=== PATIENT | female | born 1945 | race Caucasian/White ===

== ENCOUNTER 2024-02-20 23:53 | Observation (INO) | payer MEDICARE, BC, SELFPAY ==
[2024-02-20] VITALS (8 sets, daily range): BP systolic 126–174; BP diastolic 48–63; BMI 21.5
[2024-02-20 17:29] LABS: % Basophils 0.7 % (0-2); % Eosinophils 1.6 % (0-6); % Immature Granulocytes 0.3 % (0-0.5); % Lymphocytes 34.6 % (20.5-51.1); % Monocytes 7.9 % (1.7-9.3); % Neutrophils 54.9 % (42.2-75.2); Absolute Basophils 0.1 10^3/uL (0-0.2); Absolute Eosinophils 0.2 10^3/uL (0-0.7); Absolute Lymphocytes 3.8 10^3/uL (1.2-3.4); Absolute Monocytes 0.9 10^3/uL (0.1-0.6); Hematocrit 40.6 % (37.0-47.0); Mean Corp Hgb Conc. 34.5 g/dL (33.0-37.0); Mean Corpuscular Hgb 30.8 pg (27.0-31.0); Mean Corpuscular Volume 89.2 fL (81.0-99.0); Mean Platelet Volume 10.1 fL (7.4-10.4); Nucleated Red Blood Cells % 0 %; Platelet Count 226 10^3/uL (130-400); Red Blood Cell Count 4.55 10^6/uL (4.20-5.40); Red Cell Dist. Width 12.2 % (11.5-14.5); White Blood Cell Count 10.9 10^3/uL (4.8-10.8)
[2024-02-20 17:43] LABS: ALT (SGPT) 38 U/L (0-35); AST (SGOT) 33 U/L (14-36); Albumin 4.8 g/dl (3.5-5.0); Alkaline Phosphatase 58 U/L (38-126); Blood Urea Nitrogen 21 mg/dl (7-17); Calcium 10.4 mg/dl (8.4-10.2); Carbon Dioxide 29 mmol/L (22-30); Chloride 105 mmol/L (98-107); Glucose 131 mg/dl (70-99); Potassium 5.8 mmol/L (3.5-5.1); Sodium 143 mmol/L (135-145); Total Bilirubin 0.6 mg/dl (0.2-1.3); Total Protein 7.3 g/dl (6.3-8.2); eGFR > 60.00
[2024-02-20 17:56] LABS: Troponin I < 0.012 ng/ml
[2024-02-20] MEDS: ASPIRIN 325 MG PO (22:49)
[2024-02-20] MEDS: NITROSTAT (SUBLINGUAL) 0.4 MG SL (22:49)
[2024-02-20 23:26] LABS: NT-proBNP 149 pg/ml; Troponin I < 0.012 ng/ml
--- NOTE | 2024-02-20 23:45 | ED.GENMED ---
History of Present Illness
General
Chief Complaint: Chest Pain
Source: patient
Exam Limitations: none
Time Seen by Provider: 02/20/24 21:26
History of Present Illness
History of Present Illness:
78-year-old female with history of hypertension presents with progressively worsening dyspnea on exertion fatigue and chest discomfort. She saw her family doctor earlier this week because of the symptoms and had EKG changes. Patient was sent for
stress test which she had yesterday. There was ischemic findings noted on the stress test. Today she notes ongoing chest discomfort which she describes as an aching squeezing discomfort in the center of her chest with overall unwell sensation.
She denies nausea or diaphoresis. No leg swelling or calf pain. No pleuritic component to the discomfort. She was due to see cardiology as an outpatient later this week however symptoms worsened so she came here.
Phy Exam
Physical Exam
Physical Exam:
General: Uncomfortable appearing female no acute respiratory distress
HEENT: Normocephalic atraumatic
Heart: Regular rate and rhythm no murmur
Lungs: Clear no wheeze
Abdomen is soft nontender numbness
Extremities: No cyanosis
Scores
Heart Score for Chest Pain Patients
STEMI patient?: No
History: Moderately Suspicious
ECG: Nonspecific Repolarization
Age: >/= 65 years
Risk Factors: 1 or 2 Risk Factors
Troponin: </= Normal Limit
Heart Score for Chest Pain Patients: 5
Heart Score Risk: 20.3% MACE over next 6 weeks
Course
Orders/Labs/Results
Orders:
Orders
02/20/24 17:01
Electrocardiogram (*1) Urgent
Reason for Study: Chest Pain
EKG- Treatment ONCE
02/20/24 17:21
Complete Blood Count/With Diff Urgent
Comprehensive Metabolic Panel Urgent
Troponin I Urgent
02/20/24 21:54
Aspirin 325 mg PO NOW STA
02/20/24 22:06
Nitroglycerin Sublingual [Nitrostat (Sublingual)] 0.4 mg SL NOW STA
02/20/24 22:09
CR Chest - 2 Views Urgent
Comment:
Reason For Exam: chest pain, sob
02/20/24 22:55
NT-proBNP Urgent
Troponin I Urgent
Abnormal Lab Results
02/20/24
17:21
WBC 10.9 H 10^3/uL
(4.8-10.8)
Absolute Lymphs (auto) 3.8 H 10^3/uL
(1.2-3.4)
Absolute Monos (auto) 0.9 H 10^3/uL
(0.1-0.6)
Potassium 5.8 H mmol/L
(3.5-5.1)
BUN 21 H mg/dl
(7-17)
Glucose 131 H mg/dl
(70-99)
Calcium 10.4 H mg/dl
(8.4-10.2)
ALT 38 H U/L
(0-35)
02/20/24 17:21
02/20/24 17:21
Vital Signs
Initial and Last Documented VS:
Initial Vital Signs
Temp
98.4 F
02/20/24 17:06
Last Documented Vital Signs
Temp Pulse Resp BP Pulse Ox
98.4 F 55 10 127/54 91
02/20/24 17:06 02/20/24 23:30 02/20/24 23:30 02/20/24 23:30 02/20/24 23:00
MDM/Problems Addressed
Differential Diagnosis Includes:
Chest pain. Somewhat concerning story of worsening dyspnea on exertion. This was relieved with rest however today her discomfort is persistent even with rest. I reviewed stress test results from yesterday which demonstrated ischemic changes. I
was able to visualize EKG on the doctor's office earlier this week. Today she has a flipped T wave in V2 which was not present before. Initial troponin was undetectable. Spoke with cardiology regarding symptoms. Patient does have some relief
here today with sublingual nitroglycerin. Given persistent symptoms ongoing chest discomfort with recent abnormal findings on stress test and EKG will keep in hospital for further evaluation.
*Critical Care Note
Total Time (30-74mins, 75-104mins- exclusive of procedures): Not Applicable
ED Attending Note
-
Portions of this chart may have been created with voice recognition software.� Occasional wrong word or��sound alike� substitutions may have occurred due to the inherent limitations of voice recognition software.
Discharge Plan
Departure
Patient Disposition: Admit
Date of Disposition: 02/20/24
Time of Disposition: 23:49
Admit to: Telemetry
Presentation/result/management discussed w/ accepting MD/DO: Hospitalist
Discharge Problem:
Chest pain
Prescriptions:
No Action
atorvastatin 20 mg Tablet
20 mg PO HS
ibuprofen [Advil] 200 mg Tablet
400 mg PO Q8H PRN (Reason: mild pain/fever)
metoprolol succinate 25 mg Tablet Extended Release 24 Hr
25 mg PO HS
Referrals:
Mary Naylor MD [Family Provider] -
Interventions
Interventions:
*Risk Screen - Suicide Last Done: 02/20/24 17:06
*General Assessment Last Done: 02/20/24 19:15
*Neglect/Abuse Screening Last Done: 02/20/24 19:15
*ED COVID-19 Vaccine History Last Done: 02/20/24 19:28
ED- Cardiac Assessment Last Done: 02/20/24 19:28
Discharge Date and Time
Print Language: HUNGARIAN
--- NOTE | 2024-02-20 23:55 | HPS.HSE ---
Family Physician
-
Family Physician: Mary Naylor
Chief Complaint
-
Chest Pain
History of Present Illness
Patient is an 78y F with PMH significant for hypertension who presents to ED complaining of chest pain and fatigue. Patient states that she has noted exercise intolerance and fatigue for about 2 months now. She was seen by here PCP recently and
also noted intermittent chest tightness sensation. She was sent for tress test (at [facility]) which was reportedly abnormal. Patient was referred to [facility] Cardiology and has an appointment there Thursday. Today, patient felt that her chest tightness was
more severe. She had discomfort in the upper back and the R shoulder as well.
Patient presented to the ED for further evaluation.
She received SL NTG here in the ED and states that her symptoms are improved.
Medical History
Past Medical History
Past Medical History: Reports Other
Additional Past Medical History:
Hypertension
Past Surgical History: Reports Other
Additional Past Surgical History:
Cholecystectomy
Bilateral Hand Surgeries
T&A
Cataracts
Social History
Tobacco: Non-smoker
Alcohol: Daily (1 1/2 glasses daily.)
Drug: None
Family History
Family History: Other (Father: AK @ age 50, CVA Mother: CVA Brother: CAD)
Allergies / Home Medications
Allergies reflects when Allergies were last updated in [employer].
Home Medications with original date entered in [employer]
Allergy/Medication List:
Allergies
Allergy/AdvReac Type Severity Reaction Status Date / Time
adhesive tape Allergy Rash Verified 02/20/24 17:06
Home Medications
atorvastatin 20 mg tablet 20 mg PO HS 02/20/24
ibuprofen 200 mg tablet (Advil) 400 mg PO Q8H PRN mild pain/fever 02/20/24
metoprolol succinate 25 mg tablet,extended release 24 hr 25 mg PO HS 02/20/24
Review of Systems
-
History Source: Patient
A 12 point ROS was completed and negative except as noted: Yes
Constitutional: Reports Fatigue; Denies Fever or Chills
EENT: Denies Sore Throat
Respiratory: Reports Trouble Breathing; Denies Cough
Cardiac: Reports Chest Pain; Denies Diaphoresis or Palpitations
Abdomen/GI: Denies Abdominal Pain, Nausea, Vomiting or Diarrhea
: Denies Dysuria or Frequency
Musculoskeletal: Denies Edema
Neurological: Denies Dizzy or Headache
Psych: Denies Depression or Anxiety
Physical Exam
Vital Signs
Vital Signs
Temp Pulse Resp BP Pulse Ox
98.4 F 55 10 127/54 91
02/20/24 17:06 02/20/24 23:30 02/20/24 23:30 02/20/24 23:30 02/20/24 23:00
Physical Exam
General: Other (78y F in no acute distress.)
HEENT: Moist mucous membranes
Respiratory: Clear; No Wheezes, Rales or Rhonchi
Cardiac: S1/S2 and Regular Rhythm; No Murmur
GI: Soft, Non Tender, Non Distended and Normal Bowel Sounds
Musculoskeletal: No Clubbing, No Cyanosis and No Edema
Neuro: AO x 3
Laboratory Results
-
02/20/24 17:21
02/20/24 17:21
Laboratory Results
Total Bilirubin 0.6 mg/dl (0.2-1.3) 02/20/24 17:21
AST 33 U/L (14-36) 02/20/24 17:21
ALT 38 U/L (0-35) H 02/20/24 17:21
Alkaline Phosphatase 58 U/L (38-126) 02/20/24 17:21
Troponin I < 0.012 ng/ml 02/20/24 22:55
Impression/Plan
-
A/P: Patient is an 78y F with PMH significant for hypertension who presents to ED complaining of chest pain and fatigue.
Chest Pain
- Observe overnight for further evaluation and treatment.
- Reportedly abnormal stress test done at [facility] recently (send for records).
- Trop here is undetectable.
- EKG with non-specific ST and T wave changes.
- Monitor for any new / recurrent symptoms.
- Continue metoprolol/ statin. Add daily ASA.
- Cardiology evaluation for additional recommendations.
Benign Hypertension
- Stable. Continue metoprolol with holding parameters.
DVT Prophylaxis: SCDs
Code Status: Full
[2024-02-21] VITALS (8 sets, daily range): BP systolic 105–161; BP diastolic 47–68; BMI 22.3
[2024-02-21] MEDS: NSS 1000 IV (01:10)
[2024-02-21 02:18] LABS: Troponin I < 0.012 ng/ml
--- NOTE | 2024-02-21 03:25 | PTCARENOTE ---
Received pt as admission from ED into room 2245. Pt AAOx3 and ambulated from stretcher to bed independently without difficulty, no complaints of CP. Tele connected, Sinus juan with HR 50s-60s. VSS. Pt oriented to room and admission assessment
completed. Plan of care discussed and pt. verbalizes understanding. Can make needs known. Call jaffe within reach.
[2024-02-21 06:51] LABS: Blood Urea Nitrogen 17 mg/dl (7-17); Carbon Dioxide 27 mmol/L (22-30); Chloride 107 mmol/L (98-107); Estimated Creatinine Clearance 62 ml/min; Glucose 94 mg/dl (70-99); HDL Cholesterol 77 mg/dl; LDL Cholesterol, Calculated 66 mg/dl; Sodium 142 mmol/L (135-145); Total Cholesterol 154 mg/dl (50-199); Triglyceride 58 mg/dl (10-149); Very Low Density Lipoprotein 11 mg/dl (0-30); eGFR > 60.00
[2024-02-21 06:52] LABS: Troponin I < 0.012 ng/ml
--- NOTE | 2024-02-21 07:00 | PTCARENOTE ---
report received at change of shift from previous RN. Pt AAOX3. pt reports no chest pain at this time- some soreness to right shoulder. denies shortness of breath. SB on telemetry with 1st degree block heart rate 50-60s. pulses palpable, no edema.
99% on room air. lung sounds clear. active bowel sounds. voiding in bathroom without difficulty. ambulating independently without difficulty. pt updated on plan of care for today. see worklist for full nursing assessment and interventions.
[2024-02-21 07:41] LABS: Hematocrit 34.9 % (37.0-47.0); Hemoglobin 12.4 g/dL (12.0-16.0); Mean Corp Hgb Conc. 35.5 g/dL (33.0-37.0); Mean Corpuscular Hgb 32.5 pg (27.0-31.0); Mean Corpuscular Volume 91.6 fL (81.0-99.0); Mean Platelet Volume 10.3 fL (7.4-10.4); Platelet Count 167 10^3/uL (130-400); Red Blood Cell Count 3.81 10^6/uL (4.20-5.40); Red Cell Dist. Width 12.1 % (11.5-14.5); White Blood Cell Count 7.4 10^3/uL (4.8-10.8)
--- NOTE | 2024-02-21 07:41 | W.PN.HOSP.TC ---
Today's Communication/Plan
-
F/U further cardiology recommendations
Assessment / Plan
Assessment / Plan
Patient is an 78y F with PMH significant for hypertension who presents to ED complaining of chest pain and fatigue, in setting of recent abnormal stress test as outpatient.
Chest Pain
Unstable Angina
- admitted to observation
- Reportedly abnormal stress test done at [facility] recently (send for records).
- Trop here is undetectable.
- EKG with non-specific ST and T wave changes.
- Continue metoprolol/ statin. Add daily ASA.
- Nitro PRN
- Cardiology evaluation for additional recommendations.
Benign Hypertension
- Stable. Continue metoprolol with holding parameters.
DVT Prophylaxis: SCDs
Code Status: Full
Anticipated Discharge: 24 - 48 hours
Subjective/Interval History
-
Date of Service: February 21, 2024
the knot of chest discomfort is improved
has some upper back pain
states chest discomfort has been on and off but mostly persistent over past 2 months; maybe worse with exertion
Objective Data
-
Labs:
Laboratory Results
02/21/24
06:18
WBC 7.4
Hgb 12.4
Hct 34.9 L
Plt Count 167 D
Sodium 142
Potassium 4.0 D
Chloride 107
Carbon Dioxide 27
BUN 17
Creatinine 0.6
Glucose 94
Calcium 9.0
Vital Signs:
Vital Signs
Temp Pulse Resp BP Pulse Ox
98.5 F 68 20 139/63 99
02/21/24 07:23 02/21/24 02:00 02/21/24 07:23 02/21/24 01:33 02/21/24 07:23
Review of Systems
-
History Source: Patient
All other systems: Reviewed and negative
Physical Exam
-
General: No Apparent Distress
HEENT: PERRLA
Respiratory: Clear to Auscultation; Negative Wheezes
Cardiac: Regular Rhythm and S1/S2
GI: Soft and Nontender
Musculoskeletal: No Edema
Skin: Warm and Dry; Negative Rash
Neuro: AO x 3
Psych: Calm
Data Reviewed
-
Diagnostic Radiology: Report Reviewed by me
Labs: Labs Reviewed by me
[2024-02-21] MEDS: LOW STRENGTH ASPIRIN 81 MG PO (07:58)
[2024-02-21] MEDS: NSS IV (14:37)
--- NOTE | 2024-02-21 15:30 | CON.CAR ---
Consultation
Consultation Request
Date/Time Consultation Requested: 02/21/24
Date/Time Consultation Performed: 02/21/24
Requesting Provider: Maritza
Performing Provider: Dipak
Reason for Consultation: CP, SOB, fatigue
Medical History
-
Chief Complaint: CP, SOB, fatigue
History of Present Illness:
78-year-old woman past medical history of hypertension, hyperlipidemia who presents for evaluation of ongoing fatigue, chest discomfort and shortness of breath which has been present over the course of the past several months. Patient tells me that
her main complaint is fatigue and reported to this to her primary care physician who recommended exercise treadmill stress testing.
ETT was performed through the [employer] system earlier this week and patient was found to have up to [address] depressions in inferolateral leads at 6 and half minutes, 8 minutes in patient reportedly experience shortness of breath
but no chest discomfort based on stress report and patient's account.
Patient tells me that yesterday her chest discomfort worsened although it has been present present throughout the day yesterday and has been intermittently present over the course of a month or more. This led her to present to [place] emergency
department. Describes the discomfort as a knot in her chest. Does not seem to be exertional by her account. Tells me she was 'scared' given abnormal stress test.
ECG on presentation here with nonspecific ST-T wave changes
Troponin has been undetectable x 4 despite chest pain throughout the day yesterday.
proBNP was not elevated at 149
PMHx:
HTN
HLD
Cholecystectomy
Bilateral Hand Surgeries
T&A
Cataracts
Past Medical History
Past Medical History: Other (as above)
Past Surgical History: Other (as above)
Social History
Tobacco: Non-Smoker
Alcohol: Daily
Family History
Family History: CAD (brother)
Allergies / Home Medications
Allergy/AdvReac Type Severity Reaction Status Date / Time
adhesive tape Allergy Rash Verified 02/20/24 17:06
�Medication �Instructions �Recorded �Confirmed �Type
atorvastatin 20 mg tablet 20 mg PO HS High Cholesterol 02/20/24 02/20/24 History
ibuprofen 200 mg tablet (Advil) 400 mg PO Q8H PRN mild pain/fever 02/20/24 02/20/24 History
metoprolol succinate 25 mg 25 mg PO HS Blood Pressure 02/20/24 02/20/24 History
tablet,extended release 24 hr
Review of Systems
-
History Source: Patient
All other systems: Negative unless noted
Physical Exam
Vital Signs
Temp Pulse Resp BP Pulse Ox
98.9 F 74 20 105/53 98
02/21/24 11:38 02/21/24 14:00 02/21/24 11:38 02/21/24 11:40 02/21/24 11:38
Lab Results
02/21/24 06:18
02/21/24 06:18
Troponin I Cancelled 02/21/24 12:59
Irc-W-Iyalqvraeil Pept 149 pg/ml 02/20/24 22:55
Physical Exam
General: Well Developed
HEENT: Normocephalic
Respiratory: Clear and Non Labored Respirations
Cardiac: S1/S2 and Regular Rhythm
Breast: Deferred by me
GI: Soft
Musculoskeletal: No Edema
Skin: Warm and Dry
Neuro: AO x 3
Psych: Calm
Impression / Plan
-
Culinary Instructor: Scheduled to see Velia
Assessment:
Chest pain
Abnormal exercise stress test
HTN
HLD
FHx CAD
Plan:
-Main complaint is fatigue but is also been experiencing dyspnea as well as chest discomfort
-Chest discomfort sounds atypical as it is not clearly exertional in nature
-Underwent ETT through the [facility] system with [address] depressions however no chest pain on the treadmill
-After experiencing the chest discomfort throughout the day on 02/19 she presented to [place] emergency department and troponin has been undetectable x 4
-ECG with non-specific ST/T wave changes
-Agree with medical management: aspirin, atorvastatin and beta-joni
-Recommend ischemic evaluation with an imaging stress test, plan for Lexiscan nuclear stress test on 02/22/2024
-For completeness, we will also check transthoracic echocardiogram tomorrow
-The above testing will dictate further workup and management
Discussed with hospitalist
Data Reviewed
-
EKG: Tracing Personally Visualized and interpreted
Radiology: Image Personally Visualized and interpreted
Medical Tests (Nuc Med, Echo etc): Report Reviewed by me
Labs: Labs Reviewed by me
Old Records: Reviewed
[2024-02-21] MEDS: LIPITOR 20 MG PO (20:38)
[2024-02-21] MEDS: TOPROL XL 25 MG PO (20:39)
--- NOTE | 2024-02-21 21:13 | PTCARENOTE ---
Assumed pt care. Pt resting in bed at time of assessment. AAO x 4, reports 3-4/10 shoulder discomfort radiating to back & RIVAS - pt states pain has been constant since time of admission without any exacerbating or alleviating interventions. PRN
Tylenol offered, pt refused at time. No other issues noted. Pt on RA, POX 98%, posterior BS clear/equal, denies SOB or KUMAR. Pt in NSR with 1st degree AVB on monitor, heart tones normal, distal pulses palpable, no edema noted. Pt up ad sofia,
tolerating activity. BS audible, good appetite, NPO at midnight. Voiding without issue. Skin intact PIV present & patent. See MAR>
[2024-02-22 04:33] VITALS: BP 129/53
--- NOTE | 2024-02-22 04:38 | PTCARENOTE ---
VS obtained. Pt reports up ad sofia throughout night to use bathroom to void. Pt NPO. No other changes.
[2024-02-22 07:36] VITALS: BP 130/55
[2024-02-22] MEDS: LOW STRENGTH ASPIRIN 81 MG PO (07:44)
[2024-02-22 08:25] LABS: Glycohemoglobin (HgbA1c) 5.3 % (4.0-5.6)
--- NOTE | 2024-02-22 08:43 | W.PN.CARDCBS ---
Addendum entered and electronically signed by Obdulia Rodriguez DO 02/22/24 15:56:
I saw and examined the patient.
The Candy Attendant's note was reviewed and I agree with the note.
Comment: Patient seen and examined with her at bedside Following stress test. She continues to have a constant discomfort in her chest which does not get worse with activity. No shortness of breath. No palpitations.
General: No acute distress, AAOX3
Neck: Negative JVD
Heart: Regular, positive S1/S2,No murmur
Lungs: CTA b/l, negative wheezes/rales/rhonchi
Abd: Positive BS, NT/ND, neg rebound/rigidity/guarding
Ext: Negative cyanosis/clubbing/edema
Neuro: nonfocal
Cardiac studies done today:
-2D echocardiogram with normal biventricular size and systolic function and mild AI, mild to moderate TR. Estimated pulmonary artery pressure 31 mmHg. No pericardial effusion
-Lexiscan nuclear stress test with normal myocardial perfusion without evidence of scan ischemia or scar. LV ejection fraction 67%
Plan:
Near constant, mild chest discomfort
-Atypical symptoms with undetectable troponin
-2D echocardiogram with normal biventricular size and systolic function, mild to moderate TR with no evidence of pulmonary hypertension. No pericardial effusion
-Lexiscan nuclear stress test read after our visit with normal myocardial perfusion without evidence of scan ischemia or scar, ejection fraction 67%
-Consider noncardiac causes
-Continue risk factor reduction
-Keep follow-up as scheduled with Dr. Gunn
Original Note:
Today's Communication / Plan
-
Lexiscan ST and echo today
Further decision making pending results of stress and echo
Continue Toprol, aspirin and statin
Impression / Plan
-
Biofuels Research Scientist: Scheduled to see Velia
Assessment:
Presented with ongoing fatigue for several months, new dyspnea and intermittent chest discomfort/pressure
Chest pain
Abnormal exercise stress test as outpt
HTN
HLD
FHx CAD
Echocardiogram 02/22/2024: EF 65 to 70%. Mild AI. Moderate TR, PAP 31 mmHg
Lexiscan nuclear stress test 02/22/2024: Pending
Treadmill stress test 02/17/24: 6:30, [address] depressions in inferolateral leads which persisted into recovery approximately 9 minutes.
Plan:
-Presented 02/20/2024 with ongoing fatigue for several months, new dyspnea and intermittent chest discomfort/pressure
-Underwent ETT through the [facility] system with [address] depressions however no chest pain on the treadmill
-After experiencing the chest discomfort throughout the day on 02/19 she presented to [place] emergency department and troponin has been undetectable x 4
-ECG with non-specific ST/T wave changes
-Chest discomfort sounds atypical as it is not clearly exertional in nature
-Agree with medical management: aspirin, atorvastatin and beta-joni
-Recommend ischemic evaluation with an imaging stress test, plan for Lexiscan nuclear stress test on 02/22/2024 results are pending
-Transthoracic echocardiogram as noted above preserved ejection fraction with mild AI and moderate TR. Normal regional wall motion.
-Lipids 02/21/2024 TC 154, HDL 77, LDL 66, triglycerides 58. Continue atorvastatin
-The above testing will dictate further workup and management
Discussed with hospitalist, nursing
HPI 02/21/2024:
78-year-old woman past medical history of hypertension, hyperlipidemia who presents for evaluation of ongoing fatigue, chest discomfort and shortness of breath which has been present over the course of the past several months. Patient tells me that
her main complaint is fatigue and reported to this to her primary care physician who recommended exercise treadmill stress testing.
ETT was performed through the [employer] system earlier this week and patient was found to have up to [address] depressions in inferolateral leads at 6 and half minutes, 8 minutes in patient reportedly experience shortness of breath
but no chest discomfort based on stress report and patient's account.
Patient tells me that yesterday her chest discomfort worsened although it has been present throughout the day yesterday and has been intermittently present over the course of a month or more. This led her to present to [place] emergency
department. Describes the discomfort as a knot in her chest. Does not seem to be exertional by her account. Tells me she was 'scared' given abnormal stress test.
ECG on presentation here with nonspecific ST-T wave changes
Troponin has been undetectable x 4 despite chest pain throughout the day yesterday.
proBNP was not elevated at 149
Progress Note - Biofuels Research Scientist
Subjective
Date of Service: February 22, 2024
Patient seen and examined. Patient sitting on edge of bed. Reports she has mild headache following Lexiscan stress test. Still notes occasional intermittent chest tightness generally brief and self-limiting.
Objective
Labs:
02/21/24 06:18
02/21/24 06:18
Labs
Hgb 12.4 g/dL (12.0-16.0) 02/21/24 06:18
Hct 34.9 % (37.0-47.0) L 02/21/24 06:18
Plt Count 167 10^3/uL (130-400) D 02/21/24 06:18
Sodium 142 mmol/L (135-145) 02/21/24 06:18
Potassium 4.0 mmol/L (3.5-5.1) D 02/21/24 06:18
BUN 17 mg/dl (7-17) 02/21/24 06:18
Creatinine 0.6 mg/dL (0.6-1.0) 02/21/24 06:18
Glucose 94 mg/dl (70-99) 02/21/24 06:18
Troponins
02/20/24 02/20/24 02/21/24
17:21 22:55 01:38
Troponin I < 0.012 < 0.012 < 0.012
02/21/24 02/21/24
06:18 12:59
Troponin I < 0.012 Cancelled
Vital Signs and I&O:
Vital Signs
Temp Pulse Resp BP Pulse Ox
97.8 F 55 16 130/55 100
02/22/24 04:36 02/22/24 07:36 02/22/24 07:43 02/22/24 07:36 02/22/24 07:43
Vital Signs
Temp Pulse Resp BP Pulse Ox
97.8 F 55 16 130/55 100
02/22/24 04:36 02/22/24 07:36 02/22/24 07:43 02/22/24 07:36 02/22/24 07:43
Intake & Output
02/20/24 02/21/24 02/22/24 02/23/24
06:59 06:59 06:59 06:59
Intake Total 1080 / 1080
Balance 1080 / 1080
Physical Exam
Physical Exam
GEN: No distress, awake, Ox3
HEENT: supple, anicteric, mmm
LUNGS: CTA, no wheezes/rales
CV: Reg, S1/S2, 1/6 syst LSB murmur, no rub or gallop
ABD: soft, BS+, NT/ND
EXT: No edema, no clubbing or sinus
NEURO: Gross non-focal
SKIN: No rash, warm, dry,
--- NOTE | 2024-02-22 10:10 | PTCARENOTE ---
pt sent for echo at ~8am, stress test to follow.
assumed care of pt from previous shift RN, sinus rhythm on tele, VSS, lungs diminished bilaterally, pox 100% on RA. +bs, NPO maintained, voids spontaneously, PIV flushes easily, plan of care reviewed w the pt and questions encouraged.
[2024-02-22] MEDS: LEXISCAN 0.4 MG IV (10:50)
[2024-02-22] MEDS: FLUSH (NSS) 1 FLUSH IV (10:51)
[2024-02-22 13:27] VITALS: BP 153/54
--- NOTE | 2024-02-22 13:29 | PTCARENOTE ---
pt returned from echo/stress test. VSS, clear liquid tray ordered.
--- NOTE | 2024-02-22 13:32 | CM ---
Chart reviewed. Patient out of the room at a stress test, at bedside. Patient is independent of ADLS, lives with her in a 1 [address], 2 JENN, 0 DME. Plan is for the patient to return home. CM to follow
[2024-02-22 15:08] VITALS: BP 125/52
--- NOTE | 2024-02-22 16:37 | W.PN.HOSP.TC ---
Today's Communication/Plan
-
dc to home
Assessment / Plan
Assessment / Plan
Patient is an 78y F with PMH significant for hypertension who presents to ED complaining of chest pain and fatigue, in setting of recent abnormal stress test as outpatient.
Chest Pain
Unstable Angina
- Stress normal, Echo normal
- continue ASA/statin/BB
- add a PPI in case of GI related reflux/heartburn etc. OP GI referral.
- OP Cards f/u.
Benign Hypertension
- Stable. Continue metoprolol with holding parameters.
DVT Prophylaxis: SCDs
Code Status: Full
More than 30 minutes spent in discharge including
Final examination of the patient
Summarizing hospital stay
Instructions for continuing care to all relevant caregivers
Preparation of discharge records, prescriptions, and referral forms
Total time spent (in minutes): 41
Anticipated Discharge: Today
Subjective/Interval History
-
Date of Service: February 22, 2024
no complaints
echo and stress were normal
Objective Data
-
Vital Signs:
Vital Signs
Temp Pulse Resp BP Pulse Ox
97.8 F 59 20 130/55 98
02/22/24 15:06 02/22/24 13:00 02/22/24 15:06 02/22/24 07:36 02/22/24 15:06
I&O
02/21/24 02/22/24 02/23/24
06:59 06:59 06:59
Intake Total 1080 / 1080
Balance 1080 / 1080
Physical Exam
-
General: No Apparent Distress
HEENT: Normocephalic and Atraumatic
Respiratory: Negative Wheezes
Cardiac: Regular Rhythm and S1/S2
GI: Soft and Nontender
Musculoskeletal: No Edema
Neuro: AO x 3
Hematologic / Lymphatic: No Lymphadenopathy
Data Reviewed
-
Total Time Spent with Patient (in minutes): 41
Labs: Labs Reviewed by me
--- NOTE | 2024-02-22 16:41 | W.DS.TRANS ---
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
-
Discharge Instructions:
Discharge Diagnosis/Procedures chest pain
Diet Low Cholesterol
Activity As tolerated
Instructions:
Stand-Alone Forms:
Changes to Home Medications: No
Discharge Medications:
DC Medications w/original date entered in [employer]
atorvastatin 20 mg tablet 20 mg PO HS High Cholesterol 02/20/24
metoprolol succinate 25 mg tablet,extended release 24 hr 25 mg PO HS Blood Pressure 02/20/24
aspirin 81 mg chewable tablet 81 mg PO DAILY #100 tabs 02/22/24
pantoprazole 40 mg tablet,delayed release 40 mg PO DAILY #30 tabs 02/22/24
Home Medication Changes
Pending Results: No
Total time spent discharging patient (in min): 42
--- NOTE | 2024-02-22 17:46 | PTCARENOTE ---
IV line and tele monitor discontinued. Discharge instructions, follow up appointments and medication list reviewed w the pt and questions encouraged.
== END 2024-02-22 17:56 | disposition home or self-care (01) ==
LOC: IVU 23:53
PROVIDERS: Emergency Medicine; Physician Assistant; ADMITTING PHYSICIAN Hospitalist; ATTENDING PHYSICIAN Internal Medicine; CONSULT PHYSICIAN Internal Medicine Cardiovascular Disease; EMERGENCY PHYSICIAN Student in an Organized Health Care Education/Training Program; FAMILY PHYSICIAN Internal Medicine
DX: R07.89 Other chest pain (principal); R94.31 Abnormal electrocardiogram [ECG] [EKG]; I10 Essential (primary) hypertension; R06.09 Other forms of dyspnea; R53.83 Other fatigue; E78.5 Hyperlipidemia, unspecified; R00.1 Bradycardia, unspecified; R51.9 Headache, unspecified; I08.2 Rheumatic disorders of both aortic and tricuspid valves; R06.02 Shortness of breath; Z90.49 Acquired absence of other specified parts of digestive tract; Z82.3 Family history of stroke; Z82.49 Family history of ischemic heart disease and other diseases of the circulatory system; Z91.048 Other nonmedicinal substance allergy status; Z79.82 Long term (current) use of aspirin
CPT/HCPCS: 71046; 80048; 80053; 80061; 83036; 83880; 84484; 85025; 85027; 93005; 93017; 93306; 99285; G0378; J2785

== ENCOUNTER 2024-03-07 06:16 | Day surgery (SDC) | payer MEDICARE, BC, SELFPAY ==
[2024-03-07] VITALS (14 sets, daily range): BP systolic 113–149; BP diastolic 45–63; BMI 22.9
[2024-03-07] MEDS: LOW STRENGTH ASPIRIN 324 MG PO (07:19)
--- NOTE | 2024-03-07 08:12 | ITS.CL.CATH ---
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
Cardiac Catheterization
Procedure Report:
LEFT HEART CATHETERIZATION
Date of Procedure: March 07, 2024
Referring: Radha Cruz PA-C, Ji Díaz D.O.
PROCEDURES:
1. Left heart catheterization, coronary angiogram.
2. Ultrasound-guided access
3. Functional physiologic testing with IFR of proximal OM1
INDICATION: Starla is a 78-year-old female with past medical history of hypertension, hyperlipidemia, family history of coronary artery disease who has been having recurrent episodes of chest discomfort at times associated with some dyspnea with
treadmill ECG only stress test on February 17, 2024 where she exercised for 6 minutes and 26 seconds, achieving stage III of Rafal protocol, 7 METS with positive ECG response for ischemia with a [address] depression in leads II, III, aVF and
V4 through V6 with ST depressions improving more than 9 minutes into recovery. Her echocardiogram from February 22, 2024 shows normal LVEF of 65 to 70%, moderate TR, mild AI, estimated PA systolic pressure of 31 mmHg. Lexiscan nuclear stress test on
February 22, 2024 showed homogenous tracer uptake without evidence of ischemia or scar with normal LV contractility and LVEF of 67%. Given recurrent episodes of atypical chest discomfort, she is now being referred for a left heart catheterization to
rule out obstructive CAD.
ACCESS: Right radial artery, 6 [place] sheath, under ultrasound-guided
HEMODYNAMICS : (mmHg)
AO (s/d) : 139/58
LV (s/d) : 135/19
LVEDP : 27
CORONARY FINDINGS
DOMINANCE: Right
LEFT MAIN: The left main artery is a large-caliber vessel which gives rise to the left anterior descending artery and the left circumflex artery. There is minimal luminal irregularities.
LEFT ANTERIOR DESCENDING: The left anterior descending artery is a medium to large caliber vessel which gives rise to 2 major diagonal branches as it courses to the anterior interventricular groove and wraps around the apex. There is minimal
luminal irregularities.
CIRCUMFLEX: The left circumflex artery is a medium caliber vessel which gives rise to 1 major obtuse marginal branch. The proximal portion of OM1 has a focal 50 to 60% stenosis which was IFR negative. There is otherwise minimal luminal
irregularities.
RIGHT CORONARY ARTERY: The right coronary artery is a medium caliber, dominant vessel which is 20 to the right posterior descending artery and a small right posterolateral system. There is minimal luminal irregularities.
HEMODYNAMIC ASSESSMENT OF THE PROXIMAL OM1 WITH A [place] OMNI WIRE: The origin of the left coronary artery was cannulated with a 6 Fr JL 3 5 guide catheter. Intravenous heparin was administered and the ACT was followed during the procedure. Two
hundred micrograms of intracoronary nitroglycerin was given through the guide catheter. A [place] Omni wire was advanced to the guide catheter tip and normalized just outside the guide catheter pressure. The Omni wire was then carefully
manipulated across the stenosis in the proximal OM1 with the iFR above the ischemic threshold serially measuring 0.97, 0.96, 0.96. The Omni wire was then pulled back to the guide catheter where the Pd/Pa measured 1.0 confirming no baseline drift in
pressure readings.
SEDATION: 38 minutes of procedural sedation was utilized. An independent electromedical equipment technician was present to assist with and help manage the patient's level of consciousness and physiologic status.
RADIATION SUMMARY: Fluoro Time (min): 3.6, Dose (mGy): 183.88, DAP (Gy.cm2) : 15.5
Closure Device: Vascular band over right radial artery, 11 cc of air.
CONCLUSIONS
1. No obstructive coronary artery disease.
2. 50 to 60% proximal OM1 stenosis which was IFR negative.
3. Elevated LVEDP at 27 mmHg.
RECOMMENDATIONS
1. Wean radial band per protocol.
2. Medical therapy for moderate coronary artery disease and elevated LVEDP.
3. Aggressive management of cardiovascular risk factors.
Copy to: Radha Cruz PA-C, Ji Díaz, DShwethaO.
Gloria Teran MD, FACC, [facility]
[2024-03-07] MEDS: LASIX 20 MG IV (09:20)
== END 2024-03-07 13:00 | disposition home or self-care (01) ==
LOC: CATH 06:16
PROVIDERS: ATTENDING PHYSICIAN Internal Medicine Interventional Cardiology; FAMILY PHYSICIAN Internal Medicine; OTHER PHYSICIAN Internal Medicine Cardiovascular Disease
DX: I25.10 Atherosclerotic heart disease of native coronary artery without angina pectoris (principal); R07.89 Other chest pain; I10 Essential (primary) hypertension; E78.5 Hyperlipidemia, unspecified; Z82.49 Family history of ischemic heart disease and other diseases of the circulatory system; Z79.82 Long term (current) use of aspirin
CPT/HCPCS: 93799; 99152; 99153; C1769; C1894; 85347; 93458; Q9967

== ENCOUNTER → 2024-03-14 07:02 | Outpatient (REF) | payer MEDICARE, BC, SELFPAY ==
[2024-03-14 08:25] LABS: D-Dimer 0.38 ug/mlFEU (0.00-0.50)
[2024-03-14 08:54] LABS: Blood Urea Nitrogen 20 mg/dl (7-17); Calcium 9.8 mg/dl (8.4-10.2); Carbon Dioxide 33 mmol/L (22-30); Chloride 100 mmol/L (98-107); Glucose 94 mg/dl (70-99); Potassium 4.2 mmol/L (3.5-5.1); Sodium 144 mmol/L (135-145); eGFR > 60.00
== END ==
LOC: REG 07:02
PROVIDERS: ATTENDING PHYSICIAN Internal Medicine; FAMILY PHYSICIAN Internal Medicine Cardiovascular Disease
DX: R07.89 Other chest pain (principal); R06.02 Shortness of breath
CPT/HCPCS: 36415; 80048; 85379

== ENCOUNTER → 2024-03-15 15:56 | Outpatient (REF) | payer MEDICARE, BC, SELFPAY | LOC: RAD 15:56 | PROVIDERS: ATTENDING PHYSICIAN Internal Medicine; OTHER PHYSICIAN Internal Medicine Cardiovascular Disease | DX: R07.89 Other chest pain (principal); R06.02 Shortness of breath | CPT/HCPCS: 71275; Q9967 ==

== ENCOUNTER → 2024-04-27 07:23 | Outpatient (REF) | payer MEDICARE, BC, SELFPAY | LOC: MRI 3T 07:23 | PROVIDERS: ATTENDING PHYSICIAN Colon & Rectal Surgery; FAMILY PHYSICIAN Internal Medicine | DX: D12.9 Benign neoplasm of anus and anal canal (principal) | CPT/HCPCS: 72197; A9575 ==

== ENCOUNTER → 2024-10-25 08:24 | Outpatient (REF) | payer MEDICARE, BC, SELFPAY | LOC: WDC 08:24 | PROVIDERS: ATTENDING PHYSICIAN Obstetrics & Gynecology; FAMILY PHYSICIAN Internal Medicine | DX: Z12.31 Encounter for screening mammogram for malignant neoplasm of breast (principal) | CPT/HCPCS: 77063; 77067 ==

== ENCOUNTER 2024-12-30 15:40 | Emergency (ER) | payer MEDICARE, BC, SELFPAY ==
[2024-12-30 15:49] VITALS: BP 127/78
[2024-12-30 16:14] LABS: Hematocrit 36.9 % (37.0-47.0); Hemoglobin 12.5 g/dL (12.0-16.0); Mean Corp Hgb Conc. 33.9 g/dL (33.0-37.0); Mean Corpuscular Volume 90.4 fL (81.0-99.0); Nucleated Red Blood Cells % 0 %; Platelet Count 182 10^3/uL (130-400); Red Cell Dist. Width 12.4 % (11.5-14.5)
[2024-12-30 16:34] LABS: Troponin I < 0.012 ng/ml
[2024-12-30 16:37] LABS: ALT (SGPT) 90 U/L (0-35); AST (SGOT) 49 U/L (14-36); Albumin 4.4 g/dl (3.5-5.0); Alkaline Phosphatase 51 U/L (38-126); Blood Urea Nitrogen 18 mg/dl (7-17); Calcium 9.3 mg/dl (8.4-10.2); Carbon Dioxide 28 mmol/L (22-30); Chloride 105 mmol/L (98-107); Glucose 103 mg/dl (70-99); Potassium 3.8 mmol/L (3.5-5.1); Sodium 139 mmol/L (135-145); Total Protein 7.0 g/dl (6.3-8.2); eGFR > 60.00
[2024-12-30 19:45] VITALS: BP 161/72
[2024-12-30 19:46] VITALS: BMI 24.1
[2024-12-30 19:50] VITALS: BP 161/72
[2024-12-30 20:00] VITALS: BP 136/57
--- NOTE | 2024-12-30 20:41 | ED.GENMED ---
History of Present Illness
General
Chief Complaint: Cardiac Symptoms
Source: patient and records
Exam Limitations: none
Time Seen by Provider: 12/30/24 20:04
Nursing documentation reviewed up to this point in time: agreed with
History of Present Illness
History of Present Illness:
79-year-old female with a past medical history of hypertension presents to the emergency room from home for evaluation of chest discomfort. Patient reports that she has had intermittent chest discomfort for about a month jayshree says that she
occasionally gets symptoms with exertion but does not consistently get exertional symptoms. She frequently will get symptoms at rest. She says she has had some associated shortness of breath and noticed that she is more short of breath than usual
over the past month when doing exercise such as walking up the stairs. She says that for this reason she sent a message to her analytics leader this morning�mirian is supposed to have an appointment in a month with Dr. Gunn. She says she had a normal
morning, went to lunch with a friend and when she came home in the afternoon she was sitting at her computer when she started to have an episode of this vague chest discomfort. At that time she received a call back from cardiology office about the
message she has sent earlier. When they were talking to her they asked her how she was feeling at the present moment and she mention she was having an episode of this chest pain. She was instructed to take a dose of nitroglycerin and she tried
this x 2 without improvement and so they directed her to go to the ER for assessment. Currently says that she feels well, symptoms have improved. Denies any associated nausea, vomiting, diaphoresis. Has not any recent cough or fever. No swelling
or pain in the legs. Denies any other acute complaints. Of note she was seen for abnormal EKG and fatigue/chest pain in February 2024 at which time she had a cardiac catheterization which showed no obstructive disease.
Review of Systems
Review of Systems
All Other Systems: ROS reviewed and negative except as documented in HPI and ROS
Constitutional: Denies fever
Respiratory: Reports trouble breathing
Cardiac: Reports chest pain; Denies diaphoresis, palpitations or syncope
ABD/GI: Denies abdominal pain, nausea or vomiting
: Denies flank pain
Musculoskeletal: Denies edema, neck pain or back pain
Neurological: Denies dizzy or headache
Phy Exam
Physical Exam
Physical Exam:
General: Awake, alert, oriented x3; no acute distress
Head: Normocephalic, atraumatic
Eyes: Conjunctiva normal, EOMI
Throat: Airway intact, handling secretions
Neck: Trachea midline, no JVD
Lungs: Clear to auscultation bilaterally, no wheezing, rales, rhonchi
Heart: Regular rate and rhythm, faint systolic murmur
Abd: Soft, non distended, nontender
Neuro: Cranial nerves grossly intact, speech fluid
Skin: no rash
Extremities: No edema in extremities, equal pulses in all extremities
Scores
Heart Failure Risk
Heart Failure Risk Score: Not Applicable
Heart Score for Chest Pain Patients
STEMI patient?: No
History: Slightly or Non-Suspicious
ECG: Normal
Age: >/= 65 years
Risk Factors: 1 or 2 Risk Factors
Troponin: </= Normal Limit
Heart Score for Chest Pain Patients: 3
Heart Score Risk: 2.5% MACE over next 6 weeks
Withdrawal Assessment of Alcohol
Withdrawal Assessment Completed?: Not applicable
Course
Orders/Labs/Results
Orders:
Orders
12/30/24 15:43
ECG [Electrocardiogram (*1)] Urgent
Reason for Study: Palpitations
12/30/24 15:44
EKG- Treatment ONCE
12/30/24 15:55
Complete Blood Count/With Diff Urgent
Comprehensive Metabolic Panel Urgent
Troponin I Urgent
12/30/24 20:09
CR Chest - 2 Views Urgent
Comment:
Reason For Exam: SOB
12/30/24 21:36
NT-proBNP Urgent
Troponin I Urgent
Abnormal Lab Results
12/30/24
15:55
RBC 4.08 L 10^6/uL
(4.20-5.40)
Hct 36.9 L %
(37.0-47.0)
MPV 10.5 H fL
(7.4-10.4)
Absolute Monos (auto) 1.0 H 10^3/uL
(0.1-0.6)
Monocytes % 10.3 H %
(1.7-9.3)
BUN 18 H mg/dl
(7-17)
Glucose 103 H mg/dl
(70-99)
AST 49 H U/L
(14-36)
ALT 90 H U/L
(0-35)
12/30/24 15:55
12/30/24 15:55
Vital Signs
Initial and Last Documented VS:
Initial Vital Signs
Temp Pulse Resp BP Pulse Ox
37.1 C 74 16 127/78 98
12/30/24 15:49 12/30/24 15:49 12/30/24 15:49 12/30/24 15:49 12/30/24 15:49
Last Documented Vital Signs
Temp Pulse Resp BP Pulse Ox
37.1 C 64 18 133/61 99
12/30/24 15:49 12/30/24 22:08 12/30/24 22:08 12/30/24 22:08 12/30/24 22:08
MDM/Problems Addressed
Differential Diagnosis Includes:
Angina, CHF, pneumonia, anemia, GERD, costochondritis; very low clinical suspicion for PE in my judgment no further workup for this diagnosis indicated at this point
MDM/Problems Addressed:
79-year-old female presents for evaluation of intermittent atypical chest pains over the past month; she had an episode today and after discussing with her cardiology team was told to come be evaluated in the ER. Vitals and exam as above. Her EKG
here shows no changes from prior not acutely ischemic. Labs were sent in triage including a CBC which showed no anemia or other clinically significant abnormalities. CMP showed marginal transaminitis unlikely of acute clinical significance�has
been marginally elevated in the past. Initial troponin undetectable. Added repeat troponin as well as proBNP. Will check chest x-ray. Will monitor closely and reassess after the above�she did have essentially clean cardiac cath within the past
year as well as CT chest that showed no PE within the past year for similar chest pains/shortness of breath. Very low suspicion that symptoms are anginal, although she does report occasional symptoms with exertion they are not consistently
exertional/reproducible and frequently is getting at rest as well.
Troponin undetectable, proBNP not significantly elevated. Chest x-ray reviewed by me shows no acute disease. Vital signs stable on clinical reassessment. Patient remains well-appearing. Case discussed with cardiology, with negative enzymes will
plan to discharge with outpatient follow-up via chest pain hotline. Patient comfortable this plan. Spoke about return precautions all questions answered.
*Radiology
Radiology exam reviewed: preliminary read by ED provider
*Pulse Oximetry
SaO2: 99
Oxygen Mode of Delivery: Room air
Patient hypoxic: no (99%)
*EKG
Interpreted by ED Provider?: Yes
Heart Rate: 67
Rate: normal
Rhythm: sinus
[place]: normal axis
Interval: first degree heart block
QRS Pattern: normal QRS
Ischemia: no ischemia
*Critical Care Note
Total Time (30-74mins, 75-104mins- exclusive of procedures): Not Applicable
Data Reviewed
Review of Other/Old Records Reveals: Labs, Records and Testing
Source: patient and records
Patient Management
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
ED Attending Note
-
Portions of this chart may have been created with voice recognition software.� Occasional wrong word or��sound alike� substitutions may have occurred due to the inherent limitations of voice recognition software.
Discharge Plan
Departure
Patient Disposition: Home (Routine Discharge)
Date of Disposition: 12/30/24
Time of Disposition: 22:43
Patient with high blood pressure during this ER visit?: No
Discharge Problem:
Chest pain
Instructions: Chest Pain DCA Follow Up
Prescriptions:
No Action
atorvastatin 20 mg Tablet
20 mg PO HS
metoprolol succinate 25 mg Tablet Extended Release 24 Hr
25 mg PO HS
pantoprazole 40 mg Tablet,Delayed Release (Dr/Ec)
40 mg PO DAILY Qty: 30 0RF
aspirin 81 mg Tablet,Chewable
81 mg PO DAILY Qty: 100 0RF
zinc 15 mg Tablet
15 mg PO DAILY
isosorbide mononitrate 30 mg Tablet Extended Release 24 Hr
30 mg PO DAILY
psyllium Packet
1 packet PO DAILY
clobetasol 0.05 % Cream
1 applic TOPICAL QWEEK
Vitamin B-12 50 mcg Tablet
50 mcg PO DAILY
calcium 250 mg Tablet
250 mg PO DAILY
estradiol [Estrace] 0.01 % (0.1 mg/gram) Cream
1 g VAGINAL QWEEK
fluocinonide 0.05 % Cream
1 applic TOPICAL QWEEK
furosemide [Lasix] 20 mg tablet
20 mg PO DAILY Qty: 90 3RF
Referrals:
Oziel Gunn MD [Active, Cardiology] - Call in 1-3 days for appt
Mary Naylor MD [Family Provider, Internal Medicine]
Activity Restrictions/Additional Instructions:
Thank you for visiting the Emergency Department at [facility].
1. Please schedule a follow up appointment as directed. Call first thing tomorrow morning to make an appointment.
2. If indicated, please take your medications as instructed and indicated on discharge paperwork.
3. If any of your symptoms do not improve, or persist, or become more severe within 6-12 hours, please return to the emergency department for further care.
4. Please return to the emergency department if you develop a headache, neck pain/stiffness, fever greater than 100.4F, chest pain, shortness of breath, persistent nausea, vomiting, slurred speech, difficulty walking, numbness/tingling, weakness,
signs of infection or any other symptoms that are worrisome to you.
Please call [phone] if you have any questions.
Interventions
Interventions:
*Risk Screen - Suicide Last Done: 12/30/24 15:49
*General Assessment Last Done: 12/30/24 19:51
*Neglect/Abuse Screening Last Done: 12/30/24 15:49
*ED- Fall Risk Assessment Last Done: 12/30/24 19:51
*ED COVID-19 Vaccine History Last Done: 12/30/24 19:51
ED- Pulmonary Assessment Last Done: 12/30/24 19:51
ED- Cardiac Assessment Last Done: 12/30/24 19:51
Discharge Date and Time
Print Language: PARAGUAYAN
[2024-12-30 21:00] VITALS: BP 160/62
[2024-12-30 22:08] VITALS: BP 133/61
[2024-12-30 22:19] LABS: Troponin I < 0.012 ng/ml
== END 2024-12-30 22:55 | disposition home or self-care (01) ==
LOC: EMR 15:40
PROVIDERS: Emergency Medicine; EMERGENCY PHYSICIAN Emergency Medicine; FAMILY PHYSICIAN Internal Medicine
DX: R07.89 Other chest pain (principal); I10 Essential (primary) hypertension
CPT/HCPCS: 99283; 71046; 80053; 83880; 84484; 85025; 93005

== ENCOUNTER → 2025-01-30 07:30 | Outpatient (REF) | payer MEDICARE, BC, SELFPAY | LOC: HWRCS 07:30 | PROVIDERS: ATTENDING PHYSICIAN Internal Medicine Cardiovascular Disease; FAMILY PHYSICIAN Nurse Practitioner Family | DX: R07.89 Other chest pain (principal) | CPT/HCPCS: 78452; 93017; A9500 ==